=== PATIENT | female | born 1980 | race Caucasian/White ===

== ENCOUNTER 2016-11-05 10:51 | Emergency (ER) | payer MEDICAID ==
[2016-11-05] MEDS ORDERED: Acetaminophen 500 MG Tab PO ONE (11:28)
--- NOTE | 2016-11-05 11:28 | EDM.PDOC ---
ED HPI GENERAL MEDICAL PROBLEM - General Chief Complaint: LAST PICKER Problem Stated Complaint: 9 WEEKS PREG AND BLEED SINCE YESTERDAY Time Seen by Provider: 11/05/16 11:15 Source of Information: Reports: Patient History Limitations: Reports: No Limitations - History of Present Illness INITIAL COMMENTS - FREE TEXT/NARRATIVE: 36 yo female multip presents with onset 2 days ago of vaginal bleeding and now also has cramping. Is 9 weeks preg. Had a quant B-HCG yesterday that was low at 3000. blood type O+. Lives on [facility], usually delivers her babies in [facility]. Onset: Gradual Onset Date: 11/03/16 Duration: Day(s):, Getting Worse Location: Reports: Abdomen (uterine cramping) Quality: Reports: Other (cramping) Severity: Moderate Improves with: Reports: None Worsens with: Reports: Other (? time) Context: Reports: Other (9 wks preg) Associated Symptoms: Reports: No Other Symptoms Treatments T[employer] B[employer]SEM[employer]ER: Reports: Other (see below) (none) - Related Data Allergies Allergy/AdvReac Type Severity Reaction Status Date / Time amoxicillin [Amoxicillin] Allergy Hives Verified 11/05/16 10:58 cephalexin [Cephalexin] Allergy Hives Verified 11/05/16 10:58 Home Meds: Home Meds Levothyroxine [Synthroid] 50 mcg PO ACBRK 01/28/13 [History] Vits #93/Iron Fum/FA [ Formula Tablet] 1 each PO DAILY [History] Past Medical History LAST PICKER History: Reports: Endocrine/Metabolic History: Reports: Hypothyroidism - Past Surgical History HEENT Surgical History: Reports: Oral Surgery GI Surgical History: Reports: Cholecystectomy Social & Family History - Tobacco Use Smoking Status *Q: Former Smoker Years of Tobacco use: 13 Packs/Tins Daily: 0.1 Used Tobacco, but Quit: Yes Month Tobacco Last Used: june 2016 Second Hand Smoke Exposure: Yes - Recreational Drug Use Recreational Drug Use: No ED ROS GENERAL - Review of Systems Review Of Systems: See Below Constitutional: Reports: No Symptoms HEENT: Reports: No Symptoms Respiratory: Reports: No Symptoms Cardiovascular: Reports: No Symptoms GI/Abdominal: Reports: Other (uterine cramping) : Reports: Other (vaginal bleeding) Musculoskeletal: Reports: No Symptoms Skin: Reports: No Symptoms ED EXAM - Physical Exam Exam: See Below Exam Limited By: No Limitations General Appearance: Alert, WD/WN, No Apparent Distress Eye Exam: Bilateral Eye: Normal Inspection Respiratory/Chest: No Respiratory Distress, Lungs Clear, Normal Breath Sounds, No Accessory Muscle Use Cardiovascular: Regular Rate, Rhythm, No Edema GI/Abdominal Exam: Normal Bowel Sounds, Soft, Non-Tender, No Distention Heart Tones: Not [place] Movement: Not Appreciated Back Exam: Normal Inspection Extremities: Normal Inspection, No Pedal Edema Neurological: Alert, Oriented, CN II-XII Intact, Normal Cognition, No Motor/ Sensory Deficits Psychiatric: Normal Affect, Normal Mood Skin Exam: Warm, Dry, Intact, Normal Color, No Rash Lymphatic: No Adenopathy Course - Vital Signs Last Recorded V/S: Last Vital Signs Temp 36.8 C 11/05/16 11:01 Pulse 80 11/05/16 11:01 Resp 15 11/05/16 11:01 BP 133/89 11/05/16 11:01 Pulse Ox 99 11/05/16 11:01 - Orders/Labs/Meds Labs: Laboratory Tests 11/05/16 Range/Units 11:25 HCG, Quant 2326 (2.0 - ) mIU/mL Meds: Medications Discontinued Medications Generic Name Dose Route Start Last Admin Trade Name Maxiq PRN Reason Stop Dose Admin Acetaminophen 1,000 mg 11/05/16 11:28 11/05/16 11:38 Tylenol Extra Strength PO 11/05/16 11:29 1,000 mg ONETIME ONE Administration Departure - Departure Time of Disposition: 12:35 Disposition: Home, Self-Care 01 Condition: Good Clinical Impression: Threatened - Discharge Information Referrals: Javier Arteaga MD [Primary Care Provider] - Forms: ED Department Discharge
[2016-11-05 12:53] VITALS: BP 138/81
== END 2016-11-05 12:48 | disposition home or self-care (01) ==
LOC: FB.ED 10:51
DX: O20.0 Threatened abortion (principal); O99.281 Endocrine, nutritional and metabolic diseases complicating pregnancy, first trimester; E03.9 Hypothyroidism, unspecified; Z79.899 Other long term (current) drug therapy; Z90.49 Acquired absence of other specified parts of digestive tract; Z87.891 Personal history of nicotine dependence; Z3A.09 9 weeks gestation of pregnancy; Z88.1 Allergy status to other antibiotic agents
CPT/HCPCS: 36415; 84702; 99284; A9270